=== PATIENT | female | born 1980 | race Caucasian/White ===

== ENCOUNTER 2018-09-23 19:04 | Inpatient (IN) | payer MEDICAID ==
[2018-09-23 21:26] LABS: ADD MAN DIFF? NO
[2018-09-23 21:28] LABS: BASOPHILS % 0.2 % (0.0-2.0); EOSINOPHILS % 0.1 % (0.0-7.0); HEMATOCRIT 38.9 % (37.0-47.0); HEMOGLOBIN 12.7 g/dl (12.0-16.0); LYMPHOCYTES # 0.9 10^3/ul (0.8-2.9); LYMPHOCYTES % 6.9 % (15.0-51.0); MEAN CORPUSCULAR HEMOGLOBIN 28.5 pg (29.0-33.0); MEAN CORPUSCULAR HGB CONC 32.6 g/dl (32.0-37.0); MEAN CORPUSCULAR VOLUME 87.2 fl (82.0-101.0); MEAN PLATELET VOLUME 10.3 fl (7.4-10.4); MONOCYTE # 0.6 10^3/ul (0.3-0.9); MONOCYTES % 4.7 % (0.0-11.0); NEUTROPHIL # 11.4 10^3/ul (1.6-7.5); NEUTROPHILS % 87.6 % (39.0-77.0); PLATELET COUNT 289 10^3/UL (140-415); RED BLOOD COUNT 4.46 10^6/ul (4.20-5.40)
[2018-09-23 21:33] LABS: ADD UMIC YES; UR ASCORBIC ACID NEGATIVE (NEGATIVE); UR BACTERIA FEW /HPF (NONE SEEN); UR BILIRUBIN (Dip) NEGATIVE (NEGATIVE); UR BLOOD (Dip) NEGATIVE (NEGATIVE); UR CLARITY SLIGHTLY CLOUDY (CLEAR); UR COLOR YELLOW (YELLOW); UR GLUCOSE (Dip) NEGATIVE (NEGATIVE); UR KETONES (Dip) NEGATIVE (NEGATIVE); UR LEUKOCYTE ESTERASE (Dip) TRACE Leu/ul (NEGATIVE); UR MUCUS FEW /HPF (NONE SEEN); UR NITRITE (Dip) NEGATIVE (NEGATIVE); UR RBC 6 /HPF (0-5); UR SPECIFIC GRAVITY (Dip) 1.024 (1.003-1.030); UR SQUAMOUS EPITHELIAL CELL FEW /HPF (FEW); UR TOTAL PROTEIN (Dip) NEGATIVE (NEGATIVE); UR UROBILINOGEN (Dip) 2+ mg/dL (NEGATIVE); UR WBC 5 /HPF (0-5)
[2018-09-23] MEDS: KETOROLAC 15 MG INJ IV (21:33)
[2018-09-23] MEDS: SOD CHLORIDE 0.9% 1,000 ML IV (21:33)
[2018-09-23] MEDS: BELLADONNA/PHENOBARBITAL TAB PO (21:34)
[2018-09-23] MEDS: LIDOCAINE/MYLANTA 40 ML BTL PO (21:34)
[2018-09-23] MEDS: ONDANSETRON 4 MG INJ IV (21:34)
[2018-09-23 21:48] LABS: INR 0.94; PROTIME 12.7 Sec (11.9-14.9)
[2018-09-23 21:51] LABS: ALANINE AMINOTRANSFERASE 170 IU/L (13-69); ALBUMIN 4.3 g/dl (3.3-4.9); ALKALINE PHOSPHATASE 154 IU/L (42-121); ANION GAP 8 (5-13); ASPARTATE AMINO TRANSFERASE 384 IU/L (15-46); BILIRUBIN,INDIRECT 0.2 mg/dl (0-1.1); BILIRUBIN,TOTAL 0.2 mg/dl (0.2-1.3); BLOOD UREA NITROGEN 18 mg/dl (7-20); CALCIUM 9.2 mg/dl (8.4-10.2); CARBON DIOXIDE 26 mmol/L (21-31); CHLORIDE 105 mmol/L (97-110); CREATININE 0.74 mg/dl (0.44-1.00); Estimated GFR > 60 mL/min (>60); GLUCOSE 158 mg/dl (70-220); LIPASE 101 U/L (23-300); POTASSIUM 3.6 mmol/L (3.5-5.1); SODIUM 139 mmol/L (135-144); TOTAL PROTEIN 8.2 g/dl (6.1-8.1)
[2018-09-23 22:20] LABS: PARTIAL THROMBOPLASTIN TIME 25.1 Sec (23.0-35.0)
[2018-09-23] MEDS: CEPHALEXIN 500 MG CAP PO (22:20)
[2018-09-23] MEDS ORDERED: CEFTRIAXONE 1 GM/50 ML (PMX) 50 ML IVPB (22:30)
[2018-09-23] MEDS ORDERED: PIPER-TAZO 3.375 GM IV (PMX) 100 ML IVPB (23:30)
[2018-09-24] MEDS ORDERED: NACL 0.9% 3 ML SYG IV
[2018-09-24] MEDS: PIPER-TAZO 3.375 GM IV (PMX) 100 ML IVPB ×4 (00:22→17:52)
[2018-09-24] MEDS: HYDROmorphONE 0.5 MG/0.5 ML SYG IV (00:22)
[2018-09-24] MEDS: SOD CHLORIDE 0.9% 1,000 ML IV ×2 (02:21→17:51)
[2018-09-24 05:38] LABS: ADD MAN DIFF? NO
[2018-09-24 05:51] LABS: WHITE BLOOD COUNT 6.8 10^3/ul (4.8-10.8)
[2018-09-24 05:51] LABS: BASOPHILS % 0.3 % (0.0-2.0); HEMATOCRIT 35.5 % (37.0-47.0); HEMOGLOBIN 11.5 g/dl (12.0-16.0); LYMPHOCYTES % 14.3 % (15.0-51.0); MEAN CORPUSCULAR HEMOGLOBIN 28.5 pg (29.0-33.0); MEAN CORPUSCULAR HGB CONC 32.4 g/dl (32.0-37.0); MEAN CORPUSCULAR VOLUME 88.1 fl (82.0-101.0); MEAN PLATELET VOLUME 10.6 fl (7.4-10.4); MONOCYTE # 0.6 10^3/ul (0.3-0.9); MONOCYTES % 8.6 % (0.0-11.0); NEUTROPHIL # 5.2 10^3/ul (1.6-7.5); NEUTROPHILS % 76.7 % (39.0-77.0); PLATELET COUNT 256 10^3/UL (140-415); RED BLOOD COUNT 4.03 10^6/ul (4.20-5.40); RED CELL DISTRIBUTION WIDTH 13.3 % (11.5-14.5)
[2018-09-24 06:13] LABS: HEMOGLOBIN A1C 4.9 % (0-5.9)
[2018-09-24 06:36] LABS: ALANINE AMINOTRANSFERASE 520 IU/L (13-69); ALBUMIN 3.4 g/dl (3.3-4.9); ALBUMIN/GLOBULIN RATIO 0.97; ALKALINE PHOSPHATASE 133 IU/L (42-121); ANION GAP 8 (5-13); BILIRUBIN,INDIRECT 0.4 mg/dl (0-1.1); BILIRUBIN,TOTAL 0.4 mg/dl (0.2-1.3); BLOOD UREA NITROGEN 16 mg/dl (7-20); CALCIUM 8.3 mg/dl (8.4-10.2); CARBON DIOXIDE 28 mmol/L (21-31); CHLORIDE 106 mmol/L (97-110); CHOL/HDL RATIO 3.5 RATIO; CHOLESTEROL 158 mg/dl (100-200); CREATININE 0.76 mg/dl (0.44-1.00); Estimated GFR > 60 mL/min (>60); GLUCOSE 118 mg/dl (70-220); HDL CHOLESTEROL 45 mg/dl (34-82); LDL CHOLESTEROL,CALCULATED 100 mg/dl; MAGNESIUM 2.4 mg/dl (1.7-2.5); POTASSIUM 4.1 mmol/L (3.5-5.1); SODIUM 142 mmol/L (135-144); TOTAL PROTEIN 6.9 g/dl (6.1-8.1); TRIGLYCERIDES 63 mg/dl (0-149)
[2018-09-24 06:42] LABS: THYROID STIMULATING HORMONE 0.694 MIU/L (0.465-4.680)
[2018-09-24 07:19] LABS: ASPARTATE AMINO TRANSFERASE 852 IU/L (15-46)
[2018-09-25] MEDS: PIPER-TAZO 3.375 GM IV (PMX) 100 ML IVPB ×2 (00:01→06:06)
[2018-09-25 06:36] LABS: HEPATITIS B SURFACE ANTIGEN NEGATIVE (NEGATIVE)
[2018-09-25 06:54] LABS: HEPATITIS B CORE ANTIBODY NEGATIVE (NEGATIVE); HEPATITIS C VIRAL ANTIBODY NEGATIVE (NEGATIVE)
[2018-09-25 06:54] LABS: HEPATITIS B SURFACE ANTIBODY NEGATIVE (NEGATIVE)
[2018-09-25] MEDS ORDERED: INSULIN ASPART [NOVOLOG] 3 ML PEN SC (08:30)
[2018-09-25] MEDS: SOD CHLORIDE 0.9% 1,000 ML IV (10:22)
[2018-09-25] MEDS: ACETAMINOPHEN 325 MG TAB PO (10:23)
[2018-09-25] MEDS: INDOMETHACIN 50 MG SUPP PR (14:00)
[2018-09-25] MEDS ORDERED: IOHEXOL 300MG/ML 30 ML BTL ×2 (14:23→15:28)
[2018-09-25] MEDS ORDERED: LIDOCAINE 2% (SDV) 5 ML INJ (15:38)
[2018-09-25] MEDS ORDERED: PROPOFOL 100 ML (15:38)
[2018-09-25] MEDS ORDERED: DEXAMETHASONE 4 MG/ML 5 ML INJ (15:42)
[2018-09-25] MEDS ORDERED: ONDANSETRON 4 MG INJ (15:44)
[2018-09-25] MEDS ORDERED: LABETALOL HCL 20MG INJ IV (16:30)
[2018-09-25] MEDS ORDERED: INDOMETHACIN 50 MG SUPP PR (16:30)
[2018-09-25] MEDS ORDERED: ONDANSETRON 4 MG INJ IV (16:30)
[2018-09-25] MEDS ORDERED: hydrALAzine 20 MG INJ IV (16:30)
[2018-09-25] MEDS ORDERED: EPHEDrine SULFATE 50 MG/5 ML SYG IV (16:30)
[2018-09-25] MEDS ORDERED: FENTAnyl 50 MCG/ML VIAL IV ×3 (16:30)
[2018-09-25] MEDS: NITROFURANTOIN (SR) 100 MG CAP PO (20:24)
[2018-09-26 05:11] LABS: ADD MAN DIFF? NO
[2018-09-26 05:23] LABS: WHITE BLOOD COUNT 6.4 10^3/ul (4.8-10.8)
[2018-09-26 05:23] LABS: BASOPHILS % 0.2 % (0.0-2.0); HEMATOCRIT 34.2 % (37.0-47.0); HEMOGLOBIN 11.2 g/dl (12.0-16.0); LYMPHOCYTES # 0.7 10^3/ul (0.8-2.9); MEAN CORPUSCULAR HEMOGLOBIN 28.6 pg (29.0-33.0); MEAN CORPUSCULAR HGB CONC 32.7 g/dl (32.0-37.0); MEAN CORPUSCULAR VOLUME 87.5 fl (82.0-101.0); MEAN PLATELET VOLUME 10.5 fl (7.4-10.4); MONOCYTE # 0.1 10^3/ul (0.3-0.9); MONOCYTES % 1.7 % (0.0-11.0); NEUTROPHIL # 5.5 10^3/ul (1.6-7.5); NEUTROPHILS % 86.8 % (39.0-77.0); PLATELET COUNT 249 10^3/UL (140-415); RED BLOOD COUNT 3.91 10^6/ul (4.20-5.40); RED CELL DISTRIBUTION WIDTH 12.8 % (11.5-14.5)
[2018-09-26 05:45] LABS: ALANINE AMINOTRANSFERASE 342 IU/L (13-69); ALBUMIN 3.6 g/dl (3.3-4.9); ALBUMIN/GLOBULIN RATIO 1.09; ALKALINE PHOSPHATASE 165 IU/L (42-121); ANION GAP 7 (5-13); ASPARTATE AMINO TRANSFERASE 152 IU/L (15-46); BLOOD UREA NITROGEN 7 mg/dl (7-20); CALCIUM 8.9 mg/dl (8.4-10.2); CARBON DIOXIDE 25 mmol/L (21-31); CHLORIDE 108 mmol/L (97-110); CREATININE 0.47 mg/dl (0.44-1.00); Estimated GFR > 60 mL/min (>60); GLUCOSE 111 mg/dl (70-220); POTASSIUM 3.8 mmol/L (3.5-5.1); SODIUM 140 mmol/L (135-144); TOTAL PROTEIN 6.9 g/dl (6.1-8.1)
[2018-09-26] MEDS: NITROFURANTOIN (SR) 100 MG CAP PO ×2 (09:03→20:58)
[2018-09-26] MEDS: HYDROmorphONE 0.5 MG/0.5 ML SYG IV (09:55)
[2018-09-26] MEDS: ACETAMINOPHEN 325 MG TAB PO (10:10)
[2018-09-26] MEDS ORDERED: morphine 2 MG INJ IV (10:30)
[2018-09-27 05:19] LABS: ADD MAN DIFF? NO
[2018-09-27 05:27] LABS: BASOPHILS % 0.3 % (0.0-2.0); EOSINOPHILS % 0.3 % (0.0-7.0); HEMATOCRIT 33.5 % (37.0-47.0); HEMOGLOBIN 10.8 g/dl (12.0-16.0); LYMPHOCYTES # 2.4 10^3/ul (0.8-2.9); LYMPHOCYTES % 39.6 % (15.0-51.0); MEAN CORPUSCULAR HEMOGLOBIN 28.4 pg (29.0-33.0); MEAN CORPUSCULAR HGB CONC 32.2 g/dl (32.0-37.0); MEAN CORPUSCULAR VOLUME 88.2 fl (82.0-101.0); MEAN PLATELET VOLUME 10.6 fl (7.4-10.4); MONOCYTE # 0.4 10^3/ul (0.3-0.9); MONOCYTES % 5.8 % (0.0-11.0); NEUTROPHIL # 3.2 10^3/ul (1.6-7.5); NEUTROPHILS % 53.7 % (39.0-77.0); PLATELET COUNT 247 10^3/UL (140-415); RED CELL DISTRIBUTION WIDTH 13.2 % (11.5-14.5)
[2018-09-27 05:38] LABS: ALANINE AMINOTRANSFERASE 281 IU/L (13-69); ALBUMIN 3.2 g/dl (3.3-4.9); ALKALINE PHOSPHATASE 173 IU/L (42-121); ANION GAP 8 (5-13); ASPARTATE AMINO TRANSFERASE 104 IU/L (15-46); BLOOD UREA NITROGEN 10 mg/dl (7-20); CALCIUM 8.3 mg/dl (8.4-10.2); CARBON DIOXIDE 27 mmol/L (21-31); CHLORIDE 106 mmol/L (97-110); CREATININE 0.52 mg/dl (0.44-1.00); Estimated GFR > 60 mL/min (>60); GLUCOSE 95 mg/dl (70-220); POTASSIUM 3.5 mmol/L (3.5-5.1); SODIUM 141 mmol/L (135-144); TOTAL PROTEIN 6.4 g/dl (6.1-8.1)
[2018-09-27] MEDS: NITROFURANTOIN (SR) 100 MG CAP PO ×2 (10:03→22:14)
[2018-09-27] MEDS: DEXTROSE 5%-0.45% NACL 1,000 ML IV ×2 (10:44→20:30)
[2018-09-28] MEDS: DEXTROSE 5%-0.45% NACL 1,000 ML IV (01:34)
[2018-09-28] MEDS: NITROFURANTOIN (SR) 100 MG CAP PO (09:00)
[2018-09-28 09:02] LABS: MAGNESIUM 1.9 mg/dl (1.7-2.5)
[2018-09-28] MEDS ORDERED: ALBUTEROL 0.083% (NEB) 2.5 MG/3 ML AMP HHN (11:00)
[2018-09-28] MEDS ORDERED: HYDROmorphONE 1 MG/5 ML IV SYRINGE IV ×2 (11:00)
[2018-09-28] MEDS ORDERED: FENTAnyl 50 MCG/ML VIAL IV ×2 (11:00)
[2018-09-28] MEDS ORDERED: ONDANSETRON 4 MG INJ IV ×2 (11:00→13:30)
[2018-09-28] MEDS ORDERED: DIPHENHYDRAMINE 50 MG INJ IV (11:00)
[2018-09-28] MEDS ORDERED: METOCLOPRAMIDE 10 MG INJ IV (11:00)
[2018-09-28] MEDS ORDERED: FENTAnyl 50 MCG/ML VIAL ×2 (11:01→11:59)
[2018-09-28] MEDS ORDERED: ROPIVACAINE 0.5 % 30 ML VIAL (11:02)
[2018-09-28] MEDS: BUPIVACAINE 0.25% (MPF) 30 ML INJ (11:37)
[2018-09-28] MEDS: LIDOCAINE 1%/EPI (1:100,000) (MDV) 20 ML (11:37)
[2018-09-28] MEDS ORDERED: ROCURONIUM 50 MG INJ (11:45)
[2018-09-28] MEDS ORDERED: CEFAZOLIN 1 GM INJ (11:45)
[2018-09-28] MEDS ORDERED: LABETALOL HCL 20MG INJ (11:45)
[2018-09-28] MEDS ORDERED: PROPOFOL 20 ML (11:45)
[2018-09-28] MEDS ORDERED: SUCCINYLCHOLINE CHLORIDE 100 MG/5 ML SYG IV (11:45)
[2018-09-28] MEDS ORDERED: LIDOCAINE 100 MG SYRINGE (11:45)
[2018-09-28] MEDS ORDERED: SUGAMMADEX SODIUM 200 MG/2 ML VIAL IV (12:45)
[2018-09-28] MEDS: ONDANSETRON 4 MG INJ IV (13:06)
[2018-09-28] MEDS: MEPERIDINE 25 MG INJ IV (13:06)
[2018-09-28] MEDS: HYDROmorphONE 1 MG/5 ML IV SYRINGE IV ×2 (13:22→13:52)
[2018-09-28] MEDS: HYDROCODONE/APAP (5/325) TAB PO (16:23)
[2018-09-28] MEDS: D5W-0.45 NACL + KCL 20 MEQ 1,000 ML IV ×2 (18:35→23:04)
[2018-09-29] MEDS: D5W-0.45 NACL + KCL 20 MEQ 1,000 ML IV ×3 (04:13→19:04)
[2018-09-29 05:05] LABS: ADD MAN DIFF? NO
[2018-09-29 05:16] LABS: WHITE BLOOD COUNT 8.3 10^3/ul (4.8-10.8)
[2018-09-29 05:16] LABS: BASOPHILS % 0.2 % (0.0-2.0); EOSINOPHILS % 0.1 % (0.0-7.0); HEMOGLOBIN 11.8 g/dl (12.0-16.0); LYMPHOCYTES # 1.5 10^3/ul (0.8-2.9); LYMPHOCYTES % 17.7 % (15.0-51.0); MEAN CORPUSCULAR HEMOGLOBIN 28.4 pg (29.0-33.0); MEAN CORPUSCULAR HGB CONC 31.9 g/dl (32.0-37.0); MEAN CORPUSCULAR VOLUME 88.9 fl (82.0-101.0); MEAN PLATELET VOLUME 10.1 fl (7.4-10.4); MONOCYTE # 0.5 10^3/ul (0.3-0.9); MONOCYTES % 5.6 % (0.0-11.0); NEUTROPHIL # 6.3 10^3/ul (1.6-7.5); PLATELET COUNT 267 10^3/UL (140-415); RED BLOOD COUNT 4.16 10^6/ul (4.20-5.40); RED CELL DISTRIBUTION WIDTH 13.2 % (11.5-14.5)
[2018-09-29 05:43] LABS: ALANINE AMINOTRANSFERASE 177 IU/L (13-69); ALBUMIN 3.6 g/dl (3.3-4.9); ALBUMIN/GLOBULIN RATIO 1.12; ALKALINE PHOSPHATASE 147 IU/L (42-121); ANION GAP 6 (5-13); ASPARTATE AMINO TRANSFERASE 76 IU/L (15-46); BILIRUBIN,INDIRECT 0.2 mg/dl (0-1.1); BILIRUBIN,TOTAL 0.2 mg/dl (0.2-1.3); BLOOD UREA NITROGEN 3 mg/dl (7-20); CALCIUM 8.5 mg/dl (8.4-10.2); CARBON DIOXIDE 28 mmol/L (21-31); CHLORIDE 105 mmol/L (97-110); CREATININE 0.47 mg/dl (0.44-1.00); Estimated GFR > 60 mL/min (>60); GLUCOSE 103 mg/dl (70-220); POTASSIUM 3.3 mmol/L (3.5-5.1); SODIUM 139 mmol/L (135-144); TOTAL PROTEIN 6.8 g/dl (6.1-8.1)
[2018-09-29] MEDS: ACETAMINOPHEN 325 MG TAB PO ×3 (05:49→22:51)
[2018-09-29] MEDS: ENOXAPARIN 40 MG/0.4 ML SYG SC (06:47)
[2018-09-29] MEDS: POTASSIUM CHLORIDE (SR) 20 MEQ TAB PO (12:30)
[2018-09-30] MEDS: D5W-0.45 NACL + KCL 20 MEQ 1,000 ML IV ×3 (02:11→15:04)
[2018-09-30 05:31] LABS: ADD MAN DIFF? NO
[2018-09-30 05:43] LABS: WHITE BLOOD COUNT 7.3 10^3/ul (4.8-10.8)
[2018-09-30 05:43] LABS: BASOPHILS % 0.4 % (0.0-2.0); EOSINOPHILS # 0.1 10^3/ul (0.0-0.5); EOSINOPHILS % 0.7 % (0.0-7.0); HEMOGLOBIN 10.8 g/dl (12.0-16.0); LYMPHOCYTES % 27.1 % (15.0-51.0); MEAN CORPUSCULAR HEMOGLOBIN 28.1 pg (29.0-33.0); MEAN CORPUSCULAR HGB CONC 31.8 g/dl (32.0-37.0); MEAN CORPUSCULAR VOLUME 88.3 fl (82.0-101.0); MEAN PLATELET VOLUME 10.3 fl (7.4-10.4); MONOCYTE # 0.6 10^3/ul (0.3-0.9); NEUTROPHIL # 4.6 10^3/ul (1.6-7.5); NEUTROPHILS % 63.7 % (39.0-77.0); PLATELET COUNT 238 10^3/UL (140-415); RED BLOOD COUNT 3.85 10^6/ul (4.20-5.40); RED CELL DISTRIBUTION WIDTH 13.6 % (11.5-14.5)
[2018-09-30 06:03] LABS: ALANINE AMINOTRANSFERASE 142 IU/L (13-69); ALBUMIN 3.2 g/dl (3.3-4.9); ALKALINE PHOSPHATASE 122 IU/L (42-121); ANION GAP 7 (5-13); ASPARTATE AMINO TRANSFERASE 58 IU/L (15-46); BILIRUBIN,INDIRECT 0.1 mg/dl (0-1.1); BILIRUBIN,TOTAL 0.1 mg/dl (0.2-1.3); BLOOD UREA NITROGEN 4 mg/dl (7-20); CALCIUM 8.2 mg/dl (8.4-10.2); CARBON DIOXIDE 26 mmol/L (21-31); CHLORIDE 105 mmol/L (97-110); CREATININE 0.51 mg/dl (0.44-1.00); Estimated GFR > 60 mL/min (>60); GLUCOSE 96 mg/dl (70-220); SODIUM 138 mmol/L (135-144); TOTAL PROTEIN 6.4 g/dl (6.1-8.1)
[2018-09-30] MEDS: ENOXAPARIN 40 MG/0.4 ML SYG SC (06:25)
[2018-09-30] MEDS: BISACODYL (EC) 5 MG TAB PO (16:33)
[2018-09-30] MEDS: DOCUSATE SODIUM 100 MG CAP PO (16:33)
== END 2018-09-30 16:30 | disposition home or self-care (01) | DRG 418 ==
LOC: MS1 23:37 → FTE 19:04
PROC: 0FC98ZZ Extirpation of Matter from Common Bile Duct, Via Natural or Artificial Opening Endoscopic (ICD-10-PCS; 2018-09-25 15:00)
PROC: 0FT44ZZ Resection of Gallbladder, Percutaneous Endoscopic Approach (ICD-10-PCS; principal; 2018-09-25 15:49)
DX: K80.60 Calculus of gallbladder and bile duct with cholecystitis, unspecified, without obstruction (principal); Z68.41 Body mass index [BMI] 40.0-44.9, adult; N39.0 Urinary tract infection, site not specified; E66.01 Morbid (severe) obesity due to excess calories; K76.0 Fatty (change of) liver, not elsewhere classified
CPT/HCPCS: 74181; 74330; 76705; 80053; 80061; 81001; 83036; 83690; 83735; 84443; 84703; 85025; 85610; 85730; 86704; 86706; 86709; 86803; 87340; 88304; 96374; 96375; 99285-25